=== PATIENT | female | born 1940 | race Caucasian/White ===

== ENCOUNTER 2024-10-06 16:41 | Emergency (ER) | payer OTHER ==
[2024-10-06 16:54] VITALS: BP 151/73; PULSE 80; RESP 16; TEMP 98.4; BMI 19.9
[2024-10-06 19:00] LABS: BASO % 0.8 % (0-2.0); EOS % 3.1 % (0-4.5); HEMATOCRIT 40.1 % (32.4-45.2); HEMOGLOBIN 13.3 GM/dL (10.7-15.3); LYMPH % 32.6 % (8-40); MCH 27.2 pg (25.7-33.7); MCHC 33.1 g/dl (32.0-36.0); MEAN CELL VOLUME 82.2 fl (80-96); MEAN PLT VOLUME 8.9 fl (7.5-11.1); MONO % 12.5 % (3.8-10.2); PLATELET COUNT 225 10^3/uL (134-434); RBC 4.88 M/mm3 (3.60-5.2); RDW 13.9 % (11.6-15.6); WHITE BLOOD COUNT 4.2 K/mm3 (4.0-10.0)
[2024-10-06] MEDS: ACETAMINOPHEN 500 MG TABLET (FP) PO ONE (19:06)
[2024-10-06] MEDS ORDERED: ACETAMINOPHEN 325 MG TABLET (FP) ONE (19:06)
[2024-10-06] MEDS ORDERED: ALBUTEROL SO4 2.5/IPRATROPIUM 0.5 INH SOL 3 ML VIAL.NEB. NEB ONE (19:06)
[2024-10-06] MEDS: ALBUTEROL SO4 2.5/IPRATROPIUM 0.5 INH SOL 3 ML VIAL.NEB. NEB ONE (19:06)
[2024-10-06 20:01] LABS: ALBUMIN 3.4 g/dl (3.4-5.0); ALK PHOS 75 U/L (45-117); ANION GAP 3 mmol/L (4-13); BILIRUBIN,TOTAL 0.7 mg/dL (0.2-1); BLOOD UREA NITROGEN 11.8 mg/dL (7-18); CALCIUM 9.2 mg/dL (8.5-10.1); CHLORIDE 104 mmol/L (98-107); CO2 25 mmol/L (21-32); CREATININE 0.7 mg/dL (0.55-1.3); GLUCOSE,RANDOM 122 mg/dL (74-106); MAGNESIUM 2.1 mg/dL (1.8-2.4); SGOT/AST 82 U/L (15-37); SGPT/ALT 24 U/L (13-61); SODIUM 132 mmol/L (136-145); TOT PROT 7.8 g/dl (6.4-8.2)
[2024-10-06 20:16] LABS: HIV INTERPRETATION NEGATIVE (NEGATIVE)
[2024-10-06] MEDS: ALBUTEROL SO4 HFA INHALER IH ONE (20:34)
[2024-10-06] MEDS ORDERED: ALBUTEROL SO4 HFA INHALER IH ONE (20:34)
[2024-10-06 20:58] LABS: CALCIUM 9.2 mg/dL (8.5-10.1)
[2024-10-06 21:02] LABS: CREATININE 0.5 mg/dL (0.55-1.3)
== END 2024-10-06 21:45 | disposition home or self-care (01) ==
LOC: EDBD 16:41 → JER 16:41
PROC: 3E0F7GC Introduction of Other Therapeutic Substance into Respiratory Tract, Via Natural or Artificial Opening (ICD-10-PCS; principal; 2024-10-06)
DX: S20.212A Contusion of left front wall of thorax, initial encounter (principal); S70.01XA Contusion of right hip, initial encounter; R05.9 Cough, unspecified; R50.9 Fever, unspecified; R06.02 Shortness of breath; R19.7 Diarrhea, unspecified; R63.0 Anorexia; X50.0XXA Overexertion from strenuous movement or load, initial encounter; Z20.822 Contact with and (suspected) exposure to COVID-19
CPT/HCPCS: 0241U-QW; 36415; 71046-TC-FY; 71101-TC-LT-FY; 73502-TC-RT-FY; 80048; 80053; 83735; 84484; 85025; 86803; 87389; 93005; 93010; 99285-25